=== PATIENT | male | born 1990 | race Two or more races ===

== ENCOUNTER 2023-12-11 15:22 | Emergency (ER) | payer MEDICAID ==
[~2023-12-11] VITALS: Ht 170.2 cm; Wt 240.9 kg
[2023-12-11] MEDS ORDERED: MONT-35 PO (15:31)
[2023-12-11] MEDS ORDERED: LOSA-382 PO (15:31)
[2023-12-11] MEDS ORDERED: HYDR25TA2 PO (15:31)
[2023-12-11 16:30] LABS: BASOPHILS % (AUTO) 0.5 % (0.0-2.0); HEMATOCRIT 45.2 % (41-53); HEMOGLOBIN 14.6 g/dL (13.5-17.5); LYMPHOCYTES # (AUTO) 2.3 K/uL (1.0-4.8); LYMPHOCYTES % (AUTO) 18.4 % (22.0-44.0); MEAN CORPUSCULAR HEMOGLOBIN 28.3 pg (26.0-34.0); MEAN CORPUSCULAR HGB CONC 32.3 G/dL (31.0-37.0); MEAN CORPUSCULAR VOLUME 88 fL (80-100); MONOCYTES # (AUTO) 0.7 K/uL (0.1-1.0); MONOCYTES % (AUTO) 5.8 % (2.0-9.0); NEUTROPHILS # (AUTO) 9.1 K/uL (1.8-7.7); NEUTROPHILS % (AUTO) 74.3 % (40.0-70.0); PLATELET COUNT (AUTO) 260 K/uL (150-450); RED BLOOD CELL COUNT(AUTO) 5.16 MIL/uL (4.50-5.90); RED CELL DISTRIBUTION WIDTH 15.5 % (11.5-14.5); WHITE BLOOD COUNT (AUTO) 12.3 K/uL (4.5-11.0)
[2023-12-11 16:43] LABS: ANION GAP 10 mmol/L (8-16); CALCIUM, TOTAL 9.1 mg/dL (8.8-10.5); CARBON DIOXIDE 30 mmol/L (22-29); CHLORIDE 100 mmol/L (98-107); CREATININE 1.28 mg/dL (0.60-1.30); GLOMERULAR FILTR. RATE CALC > 60 mL/min (>60); GLUCOSE,RANDOM 145 mg/dL (70-110); SODIUM SERUM 140 mmol/L (136-145); UREA NITROGEN, BLOOD 14 mg/dL (7-18)
[2023-12-11 16:50] LABS: ALANINE AMINOTRANSFERASE 45 U/L (12-78); ALBUMIN 3.4 g/dL (3.4-5.0); ALKALINE PHOSPHATASE 85 U/L (46-116); ASPARTATE AMINOTRANSFERASE 32 U/L (15-37); BILIRUBIN,TOTAL 0.7 mg/dL (0.1-1.0); LIPASE 31 U/L (16-77); TOTAL PROTEIN, SERUM 7.7 g/dL (6.4-8.2)
[2023-12-11 18:48] LABS: APPEARANCE,URINE CLEAR (CLEAR); BILIRUBIN,URINE NEGATIVE (NEGATIVE); COLOR,URINE LIGHT YELLOW (YELLOW); GLUCOSE, URINE (UA) NEGATIVE (NEGATIVE); KETONES,URINE NEGATIVE (NEGATIVE); LEUKOCYTE ESTERASE ,URINE NEGATIVE (NEGATIVE); NITRATE,URINE NEGATIVE (NEGATIVE); OCCULT BLOOD,URINE NEGATIVE (NEGATIVE); PROTEIN,URINE NEGATIVE (NEGATIVE); SPECIFIC GRAVITIY, URINE 1.022 (1.003-1.030); UROBILINOGEN,URINE <=1.0 mg/dL (<=1.0)
[2023-12-11] MEDS ORDERED: CLOT15CR29 TP (19:59)
[2023-12-11] MEDS ORDERED: OMEP20 PO (19:59)
[2023-12-11] MEDS ORDERED: HYDR59LO7 TP (19:59)
[2023-12-11 20:15] VITALS: BP 148/87; PULSE 106; RESP 18; TEMP 98.3
== END 2023-12-11 20:19 | disposition home or self-care (01) ==
LOC: EMS 15:23
DX: K52.9 Noninfective gastroenteritis and colitis, unspecified (principal); E66.01 Morbid (severe) obesity due to excess calories; L24.9 Irritant contact dermatitis, unspecified cause; I10 Essential (primary) hypertension; F15.10 Other stimulant abuse, uncomplicated
CPT/HCPCS: 80053; 81003; 82271; 83690; 85025; 99283

== ENCOUNTER 2024-09-13 07:20 | Emergency (ER) | payer MEDICAID ==
[~2024-09-13] VITALS: Ht 170.2 cm; Wt 181.8 kg
[~2024-09-13 07:20] MED LIST: CLOT15CR29 TP; HYDR25TA2 PO; HYDR59LO7 TP; LOSA-382 PO; MONT-35 PO; OMEP20 PO
[2024-09-13 07:25] VITALS: TEMP 97.6
[2024-09-13] MEDS ORDERED: AMOX-457 PO (09:31)
[2024-09-13] MEDS ORDERED: CIPR7.5D7 AS (09:33)
[2024-09-13 09:45] VITALS: BP 140/76; PULSE 108; RESP 20; O2SAT 98
[2024-09-13] MEDS: AMOX TR/POT CLAV 875 MG/125 MG TABLET PO ONE (09:55)
[2024-09-13] MEDS: IBUPROFEN 600 MG TABLET PO ONE (09:55)
== END 2024-09-13 10:01 | disposition home or self-care (01) ==
LOC: EMS 07:24
DX: H66.92 Otitis media, unspecified, left ear (principal); H60.92 Unspecified otitis externa, left ear; I10 Essential (primary) hypertension; J45.909 Unspecified asthma, uncomplicated; Z79.899 Other long term (current) drug therapy
CPT/HCPCS: 99283

== ENCOUNTER 2024-10-07 08:05 | Emergency (ER) | payer MEDICAID ==
[~2024-10-07] VITALS: Ht 170.2 cm; Wt 231.8 kg
[~2024-10-07 08:05] MED LIST changes: +AMOX-457 PO; +CIPR7.5D7 AS
[2024-10-07 08:22] VITALS: TEMP 98
[2024-10-07 09:04] LABS: COVID AG,FIA SOURCE NASAL SWAB
[2024-10-07 09:30] VITALS: BP 154/88; PULSE 99; RESP 17; O2SAT 97
[2024-10-07 09:49] LABS: INFLUENZA TYPE A NEGATIVE FOR TYPE A (NEGATIVE); INFLUENZA TYPE B NEGATIVE FOR TYPE B (NEGATIVE); SARS-COV2 (COVID) ANTIGEN,FIA Negative (Negative)
[2024-10-07 09:55] LABS: RAPID GROUP A STREP NEGATIVE (NEGATIVE)
[2024-10-07] MEDS ORDERED: BENZ-227 PO (10:05)
[2024-10-07] MEDS: DEXAMETHASONE 4 MG TABLET PO ONE (10:16)
== END 2024-10-07 10:45 | disposition home or self-care (01) ==
LOC: EMS 08:13
DX: B34.9 Viral infection, unspecified (principal); J02.9 Acute pharyngitis, unspecified; R09.81 Nasal congestion; J45.909 Unspecified asthma, uncomplicated; I10 Essential (primary) hypertension; Z79.899 Other long term (current) drug therapy; Z20.822 Contact with and (suspected) exposure to COVID-19
CPT/HCPCS: 99283; 87426; 87430; 87804; J8540